=== PATIENT | male | born 1940 | race Two or more races ===

== ENCOUNTER 2024-02-06 11:07 | Inpatient (IN) | payer MEDICARE, BC ==
[~2024-02-06] VITALS: Ht 170.2 cm; Wt 70.5 kg
[2024-02-06 14:41] LABS: Basophils # (auto) 0 10 ^3/uL (0-0.2); Eosinophils # (auto) 0.1 10 ^3/uL (0-0.8); Monocytes # (auto) 0.2 10 ^3/uL (0-1.3); White Blood Cell 2.7 10^3/uL (4.4-10.8)
[2024-02-06 14:44] LABS: Eosinophils % (auto) 2.1 % (0.0-7.0); Hematocrit 23.4 % (41.0-53.0); Lymphocytes # (auto) 0.3 10 ^3/uL (0.4-5.4); Mean Corpuscular Hgb Conc. 29.7 g/dL (32.0-36.0); Mean Corpuscular Volume 67.3 fL (80.0-100.0); Monocytes % (auto) 8.9 % (0.0-12.0); Nucleated Red Blood Cells % 0.3 %; Platelet Count (auto) 211 10^3/uL (140-450); Red Blood Cells 3.48 10^6/uL (4.5-5.90)
[2024-02-06 14:56] LABS: Red Cell Distribution Width 23.7 % (11.8-14.3)
[2024-02-06 14:57] LABS: Hemoglobin 6.9 g/dL (13.5-17.5)
[2024-02-06 15:04] LABS: Alanine Aminotransferase 14 U/L (7-40); Albumin 3.5 g/dL (3.2-4.8); Alkaline Phosphatase 69 U/L (46-116); Anion Gap 5 (5-15); Aspartate Aminotransferase < 8 U/L (13-40); BUN/Creatinine Ratio 25.6 (10.0-20.0); Blood Urea Nitrogen 23 mg/dL (9-23); Calcium 9.2 mg/dL (8.7-10.4); Carbon Dioxide 27 mmol/L (20-30); Chloride 109 mmol/L (98-107); Glucose 106 mg/dL (74-106); Potassium 4.5 mmol/L (3.5-5.1); Sodium 141 mmol/L (136-145)
[2024-02-06 15:05] LABS: Bilirubin, Total 0.8 mg/dL (0.2-1.0); Total Protein 5.6 g/dL (5.7-8.2)
[2024-02-06] MEDS: diphenhdrAMINE HCL 25 MG CAP PO ONE (15:47)
[2024-02-06 16:13] LABS: Folate (Folic Acid) 11.23 ng/mL (>5.38)
[2024-02-06 16:18] LABS: % Iron Saturation 2.9 % (20-55)
[2024-02-06] MEDS ORDERED: MORPHINE SULFATE INJ 2 MG/ml SYRG IV PRN (23:45)
[2024-02-06] MEDS ORDERED: hydrALAZINE HCL 20 MG/ML VL IV PRN (23:45)
[2024-02-06] MEDS ORDERED: ONDANSETRON HCL 4 MG/2 ML VIAL IV PRN (23:45)
[2024-02-06] MEDS ORDERED: DEXTROSE (50%) 50ML SYRG IV PRN (23:45)
[2024-02-06] MEDS ORDERED: ACETAMINOPHEN 325 MG TAB PO PRN (23:45)
[2024-02-06] MEDS ORDERED: NITROGLYCERIN 0.4 MG SL TAB SL PRN (23:45)
[2024-02-06] MEDS: SOD CHL 0.45% 1,000 ML IV SCH (23:45)
[2024-02-06] MEDS ORDERED: DOCUSATE SOD 100 MG CAP PO PRN (23:45)
[2024-02-07] VITALS (11 sets, daily range): BP systolic 111–136; BP diastolic 52–68; PULSE 66–87; RESP 16–20; TEMP 97.6–98.9; O2SAT 95–100
[2024-02-07 05:41] LABS: Urine Bacteria None Seen /hpf (None Seen)
[2024-02-07] MEDS: ACCU-CHEK COMFORT CURVE STRIP VI SCH (05:48)
[2024-02-07] MEDS: InsuLIN REG 1unit/0.01ml Soln (100units/ml) SC SCH (05:48)
[2024-02-07 06:14] LABS: Urine Blood Negative /uL (Negative); Urine Clarity Clear (Clear); Urine Color Light-Yellow (Yellow); Urine Mucus FEW (None Seen); Urine Protein, UAD Negative (Negative); Urine Specific Gravity 1.012 (1.001-1.035); Urine Urobilinogen Normal (Negative); Urine WBC 1 /hpf (0 - 3); Urine WBC Clumps PRESENT /hpf (None Seen)
[2024-02-07] MEDS ORDERED: levETIRAcetam 1000 mg/100ml 100 ML IV SCH (10:00)
[2024-02-07 11:29] LABS: Hemoglobin 8.2 g/dL (13.5-17.5); Platelet Count (auto) 207 10^3/uL (140-450)
[2024-02-07 11:31] LABS: Hematocrit 27.3 % (41.0-53.0); Mean Corpuscular Hemoglobin 21.1 pg (28.0-32.0); Mean Corpuscular Hgb Conc. 30.1 g/dL (32.0-36.0); Mean Corpuscular Volume 70.1 fL (80.0-100.0); White Blood Cell 3.7 10^3/uL (4.4-10.8)
[2024-02-07 11:33] LABS: Red Cell Distribution Width 24.7 % (11.8-14.3)
[2024-02-07 11:34] LABS: Albumin 3.7 g/dL (3.2-4.8); Alkaline Phosphatase 70 U/L (46-116); Anion Gap 7 (5-15); Aspartate Aminotransferase 9 U/L (13-40); BUN/Creatinine Ratio 20.7 (10.0-20.0); Bilirubin, Total 1.6 mg/dL (0.2-1.0); Blood Urea Nitrogen 19 mg/dL (9-23); Calcium 9.3 mg/dL (8.7-10.4); Carbon Dioxide 24 mmol/L (20-30); Chloride 108 mmol/L (98-107); Glucose 116 mg/dL (74-106); Potassium 4.2 mmol/L (3.5-5.1); Sodium 139 mmol/L (136-145); Total Protein 6.2 g/dL (5.7-8.2)
[2024-02-07 11:35] LABS: Basophils % (manual) 0 (0.0-2.0); Blast Cells 0; Metamyelocytes % 0; Myelocytes % 0; Promyelocytes % 0
[2024-02-07 11:48] LABS: Alanine Aminotransferase < 9 U/L (7-40)
[2024-02-07] MEDS: FAMOTIDINE (10MG/ML) 2ML VL IV SCH (11:54)
[2024-02-07 12:29] LABS: Anisocytosis Moderate; Band Neutrophils % (manual) 1; Eosinophils % (manual) 3 (0-7); Lymphocytes % (manual) 11 (10.0-50.0); Monocytes % (manual) 6 (0-12); Reactive Lymphocytes 1
[2024-02-07 12:30] LABS: Hypochromia Slight; Ovalocytes FEW; Platelet Estimate Adequate
[2024-02-07] MEDS: levETIRAcetam 500 MG TAB PO ONE (15:08)
[2024-02-07] MEDS: levETIRAcetam 500 MG TAB PO SCH (21:38)
[2024-02-08] VITALS (9 sets, daily range): BP systolic 119–135; BP diastolic 60–69; PULSE 71–93; RESP 14–18; TEMP 97.8–99.6; O2SAT 95–98
[2024-02-08] MEDS: HYDROcodone-ACET 5/325MG TAB PO PRN (00:12)
[2024-02-08 07:44] LABS: Albumin 3.6 g/dL (3.2-4.8); Alkaline Phosphatase 67 U/L (46-116); Calcium 9.7 mg/dL (8.7-10.4)
[2024-02-08 07:45] LABS: Alanine Aminotransferase < 9 U/L (7-40); Anion Gap 6 (5-15); Aspartate Aminotransferase 8 U/L (13-40); BUN/Creatinine Ratio 16.1 (10.0-20.0); Bilirubin, Total 1.3 mg/dL (0.2-1.0); Blood Urea Nitrogen 15 mg/dL (9-23); Carbon Dioxide 24 mmol/L (20-30); Chloride 108 mmol/L (98-107); Glucose 96 mg/dL (74-106); Potassium 3.7 mmol/L (3.5-5.1); Sodium 138 mmol/L (136-145); Total Protein 6.1 g/dL (5.7-8.2)
[2024-02-08 07:50] LABS: Hemoglobin 7.9 g/dL (13.5-17.5); Mean Corpuscular Hemoglobin 21.1 pg (28.0-32.0); Red Blood Cells 3.77 10^6/uL (4.5-5.90); White Blood Cell 3.2 10^3/uL (4.4-10.8)
[2024-02-08 07:51] LABS: Hematocrit 26.1 % (41.0-53.0); Mean Corpuscular Hgb Conc. 30.4 g/dL (32.0-36.0); Mean Corpuscular Volume 69.2 fL (80.0-100.0); Platelet Count (auto) 203 10^3/uL (140-450); Red Cell Distribution Width 24.8 % (11.8-14.3)
[2024-02-08 07:55] LABS: Band Neutrophils % (manual) 0; Basophils % (manual) 0 (0.0-2.0); Blast Cells 0; Metamyelocytes % 0; Myelocytes % 0; Promyelocytes % 0; Reactive Lymphocytes 0
[2024-02-08 08:36] LABS: Eosinophils % (manual) 2 (0-7); Lymphocytes % (manual) 18 (10.0-50.0); Monocytes % (manual) 6 (0-12)
[2024-02-08 08:37] LABS: Anisocytosis Moderate; Hypochromia Slight; Ovalocytes FEW
[2024-02-08 08:38] LABS: Platelet Estimate Adequate
[2024-02-08] MEDS: IRON SUCROSE COMPLEX 100 ML IV SCH (11:32)
[2024-02-09] VITALS (10 sets, daily range): BP systolic 113–136; BP diastolic 50–73; PULSE 67–93; RESP 16–21; TEMP 97.2–98.5; O2SAT 92–100
[2024-02-09] MEDS ORDERED: SODIUM CHLORIDE LOCK 10 ML ONE (07:58)
[2024-02-09] MEDS: LIDOCAINE VISCOUS 2% 15ML UD ONE (09:18)
[2024-02-09] MEDS: fentaNYL CITRATE 100 MCG/2 ML VL ONE (09:20)
[2024-02-09] MEDS: diphenhdrAMINE HCL 50 MG/1 ML VL ONE (09:20)
[2024-02-09] MEDS: MIDAZOLAM HCL 5 MG/ML-1ML VIAL ONE (09:20)
[2024-02-09 13:51] LABS: Basophils # (auto) 0 10 ^3/uL (0-0.2); Lymphocytes # (auto) 0.2 10 ^3/uL (0.4-5.4); Mean Corpuscular Hemoglobin 21.3 pg (28.0-32.0); Monocytes # (auto) 0.2 10 ^3/uL (0-1.3); Neutrophils # (auto) 1.7 10 ^3/uL (1.6-8.6); Neutrophils % (auto) 78.3 % (37.0-80.0); Nucleated Red Blood Cells % 0.3 %; Red Cell Distribution Width 24.8 % (11.8-14.3); White Blood Cell 2.2 10^3/uL (4.4-10.8)
[2024-02-09 13:54] LABS: Basophils % (auto) 1.1 % (0.0-2.0); Eosinophils # (auto) 0 10 ^3/uL (0-0.8); Eosinophils % (auto) 1.9 % (0.0-7.0); Hematocrit 25.7 % (41.0-53.0); Hemoglobin 7.8 g/dL (13.5-17.5); Lymphocytes % (auto) 10.9 % (10.0-50.0); Mean Corpuscular Hgb Conc. 30.4 g/dL (32.0-36.0); Mean Corpuscular Volume 69.8 fL (80.0-100.0); Monocytes % (auto) 7.8 % (0.0-12.0); Platelet Count (auto) 192 10^3/uL (140-450); Red Blood Cells 3.69 10^6/uL (4.5-5.90)
[2024-02-09 14:58] LABS: Alanine Aminotransferase 11 U/L (7-40); Albumin 3.7 g/dL (3.2-4.8); Alkaline Phosphatase 68 U/L (46-116); Anion Gap 7 (5-15); Aspartate Aminotransferase < 8 U/L (13-40); BUN/Creatinine Ratio 13.3 (10.0-20.0); Bilirubin, Total 0.9 mg/dL (0.2-1.0); Blood Urea Nitrogen 12 mg/dL (9-23); Calcium 9.7 mg/dL (8.7-10.4); Carbon Dioxide 24 mmol/L (20-30); Chloride 110 mmol/L (98-107); Glucose 114 mg/dL (74-106); Potassium 3.8 mmol/L (3.5-5.1); Sodium 141 mmol/L (136-145); Total Protein 6.1 g/dL (5.7-8.2)
[2024-02-10] VITALS (8 sets, daily range): BP systolic 130–149; BP diastolic 59–71; PULSE 76–91; RESP 15–18; TEMP 97.5–98.4; O2SAT 94–99
[2024-02-10 11:31] LABS: Basophils # (auto) 0 10 ^3/uL (0-0.2); Eosinophils # (auto) 0.1 10 ^3/uL (0-0.8); Hematocrit 26.4 % (41.0-53.0); Hemoglobin 7.9 g/dL (13.5-17.5); Monocytes # (auto) 0.2 10 ^3/uL (0-1.3)
[2024-02-10 11:33] LABS: Basophils % (auto) 0.8 % (0.0-2.0); Eosinophils % (auto) 2.8 % (0.0-7.0); Lymphocytes # (auto) 0.3 10 ^3/uL (0.4-5.4); Lymphocytes % (auto) 9.7 % (10.0-50.0); Mean Corpuscular Hgb Conc. 29.9 g/dL (32.0-36.0); Mean Corpuscular Volume 70.2 fL (80.0-100.0); Monocytes % (auto) 6.9 % (0.0-12.0); Neutrophils # (auto) 2.4 10 ^3/uL (1.6-8.6); Neutrophils % (auto) 79.8 % (37.0-80.0); Nucleated Red Blood Cells % 0.1 %; Platelet Count (auto) 204 10^3/uL (140-450); Red Blood Cells 3.76 10^6/uL (4.5-5.90)
[2024-02-10 11:49] LABS: Alanine Aminotransferase 12 U/L (7-40); Alkaline Phosphatase 67 U/L (46-116); Anion Gap 7 (5-15); Calcium 9.6 mg/dL (8.7-10.4); Carbon Dioxide 23 mmol/L (20-30); Chloride 112 mmol/L (98-107); Sodium 142 mmol/L (136-145)
[2024-02-10 11:50] LABS: BUN/Creatinine Ratio 12.2 (10.0-20.0); Blood Urea Nitrogen 11 mg/dL (9-23); Glucose 95 mg/dL (74-106)
[2024-02-10 11:52] LABS: Albumin 3.6 g/dL (3.2-4.8); Aspartate Aminotransferase 8 U/L (13-40); Bilirubin, Total 0.9 mg/dL (0.2-1.0)
[2024-02-10 11:58] LABS: Platelet Estimate Adequate
[2024-02-10 11:59] LABS: Hypochromia Moderate
[2024-02-10 12:01] LABS: Anisocytosis Marked; Large Platelets FEW
[2024-02-10 14:45] LABS: COVID19 ANTIGEN SOFIA FIA NEGATIVE (NEGATIVE)
[2024-02-11 01:00] VITALS: BP 131/66; PULSE 82; RESP 18; TEMP 97.8; O2SAT 98
[2024-02-11 05:00] VITALS: BP 125/64; PULSE 78; RESP 18; TEMP 97.9; O2SAT 97
[2024-02-11 08:00] VITALS: PULSE 69
[2024-02-11 09:12] VITALS: BP 122/65; PULSE 85; RESP 17; TEMP 98.9; O2SAT 97
[2024-02-11 09:41] LABS: Basophils # (auto) 0 10 ^3/uL (0-0.2); Eosinophils # (auto) 0.1 10 ^3/uL (0-0.8); Hemoglobin 7.6 g/dL (13.5-17.5); Monocytes # (auto) 0.2 10 ^3/uL (0-1.3); White Blood Cell 2.9 10^3/uL (4.4-10.8)
[2024-02-11 09:44] LABS: Basophils % (auto) 0.5 % (0.0-2.0); Eosinophils % (auto) 3.1 % (0.0-7.0); Hematocrit 25.5 % (41.0-53.0); Lymphocytes # (auto) 0.3 10 ^3/uL (0.4-5.4); Lymphocytes % (auto) 10.2 % (10.0-50.0); Mean Corpuscular Hemoglobin 21.2 pg (28.0-32.0); Mean Corpuscular Hgb Conc. 29.8 g/dL (32.0-36.0); Mean Corpuscular Volume 71.1 fL (80.0-100.0); Monocytes % (auto) 8.5 % (0.0-12.0); Neutrophils # (auto) 2.3 10 ^3/uL (1.6-8.6); Neutrophils % (auto) 77.7 % (37.0-80.0); Platelet Count (auto) 201 10^3/uL (140-450); Red Blood Cells 3.58 10^6/uL (4.5-5.90)
[2024-02-11 09:56] LABS: Red Cell Distribution Width 24.9 % (11.8-14.3)
[2024-02-11 09:59] LABS: Alanine Aminotransferase 15 U/L (7-40); Albumin 3.7 g/dL (3.2-4.8); Alkaline Phosphatase 67 U/L (46-116); Anion Gap 6 (5-15); Aspartate Aminotransferase < 8 U/L (13-40); BUN/Creatinine Ratio 14.6 (10.0-20.0); Blood Urea Nitrogen 12 mg/dL (9-23); Calcium 9.4 mg/dL (8.7-10.4); Carbon Dioxide 25 mmol/L (20-30); Chloride 111 mmol/L (98-107); Glucose 133 mg/dL (74-106); Potassium 3.6 mmol/L (3.5-5.1); Sodium 142 mmol/L (136-145)
[2024-02-11 10:00] LABS: Bilirubin, Total 0.9 mg/dL (0.2-1.0); Total Protein 5.9 g/dL (5.7-8.2)
[2024-02-11 13:00] VITALS: BP 129/71; PULSE 70; RESP 16; TEMP 98.2; O2SAT 97
== END 2024-02-11 16:15 | disposition home health service (06) | DRG 64 ==
LOC: EDBD 11:07 → EDSEX 11:07 → ER 11:07 → TELE 23:48 → TELE-WESTW 23:48 → UNDODEPER 02-07 04:04
PROVIDERS: ADMIT Nurse Practitioner Family; ATTEND Internal Medicine
PROC: 30233N1 Transfusion of Nonautologous Red Blood Cells into Peripheral Vein, Percutaneous Approach (ICD-10-PCS; 2024-02-07)
PROC: 0DB68ZX Excision of Stomach, Via Natural or Artificial Opening Endoscopic, Diagnostic (ICD-10-PCS; 2024-02-09)
PROC: 0DB98ZX Excision of Duodenum, Via Natural or Artificial Opening Endoscopic, Diagnostic (ICD-10-PCS; principal; 2024-02-09 09:13)
DX: I62.02 Nontraumatic subacute subdural hemorrhage (principal); E43 Unspecified severe protein-calorie malnutrition; D62 Acute posthemorrhagic anemia; D32.0 Benign neoplasm of cerebral meninges; K29.80 Duodenitis without bleeding; D70.9 Neutropenia, unspecified; I48.0 Paroxysmal atrial fibrillation; K29.70 Gastritis, unspecified, without bleeding; J44.9 Chronic obstructive pulmonary disease, unspecified; E11.9 Type 2 diabetes mellitus without complications; I10 Essential (primary) hypertension; Z96.612 Presence of left artificial shoulder joint; Z96.651 Presence of right artificial knee joint; Z20.822 Contact with and (suspected) exposure to COVID-19; F17.210 Nicotine dependence, cigarettes, uncomplicated; E78.00 Pure hypercholesterolemia, unspecified; Z80.8 Family history of malignant neoplasm of other organs or systems; Z86.711 Personal history of pulmonary embolism; Z92.3 Personal history of irradiation; Z85.46 Personal history of malignant neoplasm of prostate; Z68.24 Body mass index [BMI] 24.0-24.9, adult
CPT/HCPCS: 36415; 43239; 70450; 71250; 74176; 80053; 81001; 82270; 82607; 82746; 82962; 83540; 83550; 83605; 83615; 84484; 85007; 85025; 85027; 86850; 86900; 86901; 86920; 87426; 93005; 93306; 97110; 97116; 97163; 97530; 99291; G0378; J1756; J1815; J2250; J3490

== ENCOUNTER 2024-02-23 19:41 | Inpatient (IN) | payer MEDICARE, BC ==
[~2024-02-23] VITALS: Ht 172.7 cm; Wt 71.8 kg
[2024-02-23 20:32] LABS: White Blood Cell 2.2 10^3/uL (4.4-10.8)
[2024-02-23 20:34] LABS: Hematocrit 29.6 % (41.0-53.0); Hemoglobin 9.1 g/dL (13.5-17.5); Mean Corpuscular Hemoglobin 21.7 pg (28.0-32.0); Mean Corpuscular Hgb Conc. 30.7 g/dL (32.0-36.0); Mean Corpuscular Volume 70.7 fL (80.0-100.0); Platelet Count (auto) 280 10^3/uL (140-450); Red Blood Cells 4.18 10^6/uL (4.5-5.90)
[2024-02-23 20:36] LABS: Red Cell Distribution Width 28.2 % (11.8-14.3)
[2024-02-23 20:48] LABS: Alanine Aminotransferase 11 U/L (7-40); Albumin 3.7 g/dL (3.2-4.8); Alkaline Phosphatase 82 U/L (46-116); Anion Gap 6 (5-15); Aspartate Aminotransferase 9 U/L (13-40); BUN/Creatinine Ratio 21.6 (10.0-20.0); Bilirubin, Total 1.2 mg/dL (0.2-1.0); Blood Urea Nitrogen 21 mg/dL (9-23); Calcium 9.2 mg/dL (8.7-10.4); Carbon Dioxide 24 mmol/L (20-30); Chloride 106 mmol/L (98-107); Glucose 152 mg/dL (74-106); Lipase 27 U/L (12-53); Potassium 4.4 mmol/L (3.5-5.1); Sodium 136 mmol/L (136-145)
[2024-02-23 20:49] LABS: Total Protein 6.2 g/dL (5.7-8.2)
[2024-02-23 20:54] LABS: Basophils % (manual) 0 (0.0-2.0); Blast Cells 0; Eosinophils % (manual) 0 (0-7); Metamyelocytes % 0; Myelocytes % 0; Promyelocytes % 0; Reactive Lymphocytes 0
[2024-02-23 21:13] LABS: Band Neutrophils % (manual) 13; Lymphocytes % (manual) 17 (10.0-50.0); Monocytes % (manual) 3 (0-12)
[2024-02-23 21:14] LABS: Anisocytosis Moderate; Hypochromia Moderate; Platelet Estimate Adequate
[2024-02-23 21:15] LABS: Ovalocytes FEW
[2024-02-23] MEDS: ACETAMINOPHEN 325 MG TAB PO ONE (23:14)
[2024-02-23 23:26] VITALS: PULSE 104
[2024-02-24] VITALS (7 sets, daily range): BP systolic 115–131; BP diastolic 56–59; PULSE 80–100; RESP 16–21; TEMP 98–98.8; O2SAT 93–98
[2024-02-24] MEDS ORDERED: ONDANSETRON HCL 4 MG/2 ML VIAL IV PRN (00:30)
[2024-02-24 00:45] LABS: INR 1.29 (0.9-1.15); Prothrombin Time 13.4 sec (9.3-11.8)
[2024-02-24] MEDS: cefTRIAXone 1GM/50ML D5W 50 ML IV ONE (01:18)
[2024-02-24] MEDS: traMADol HCL 50 MG TAB PO PRN (01:19)
[2024-02-24] MEDS: cefTRIAXone 1GM/50ML D5W 50 ML IV SCH (03:28)
[2024-02-24] MEDS: levETIRAcetam 500 MG TAB PO SCH (09:25)
[2024-02-24] MEDS: FUROSEMIDE 40 MG TAB PO SCH (09:26)
[2024-02-24] MEDS: METOPROLOL TARTRATE 25 MG TAB PO SCH (09:34)
[2024-02-24] MEDS: PANTOPRAZOLE 40 MG TAB PO ONE (14:39)
[2024-02-24] MEDS ORDERED: MET25T PO (14:57)
[2024-02-24] MEDS ORDERED: FER325T PO (14:57)
[2024-02-24] MEDS ORDERED: FURO40TA4 PO (14:57)
[2024-02-24] MEDS ORDERED: LEVE100020 PO (14:57)
[2024-02-24] MEDS ORDERED: WARF-112 PO (14:57)
[2024-02-24] MEDS ORDERED: METO25TA5 PO (15:16)
[2024-02-24] MEDS ORDERED: LEVE100012 PO (15:20)
[2024-02-24] MEDS: Ensure HIGH Protein Chocolate 8oz Bottle PO SCH (18:00)
[2024-02-24] MEDS: LACTULOSE 20Gm/30ML SOLN PO ONE (18:33)
[2024-02-24 19:35] LABS: Urine Bacteria FEW /hpf (None Seen); Urine Blood Negative /uL (Negative); Urine Clarity Turbid (Clear); Urine Color Yellow (Yellow); Urine Mucus FEW (None Seen); Urine Protein, UAD TRACE (Negative); Urine Specific Gravity 1.015 (1.001-1.035); Urine Urobilinogen Normal (Negative); Urine WBC 2 /hpf (0 - 3)
[2024-02-24 19:45] LABS: Amphetamine Screen, Urine Neg (NEGATIVE)
[2024-02-24 19:46] LABS: Barbiturate Scree,Urine Neg (NEGATIVE); Benzodiazephine Screen, Urine Neg (NEGATIVE); Cannabinoid Screen, Urine Neg (NEGATIVE); Cocaine Screen, Urine Neg (NEGATIVE); Opiate Scree,Urine Pos (NEGATIVE); Phencyclidine Screen, Urine Neg (NEGATIVE)
[2024-02-25] VITALS (8 sets, daily range): BP systolic 101–120; BP diastolic 55–65; PULSE 73–105; RESP 17–22; TEMP 97.8–98.5; O2SAT 94–98
[2024-02-25] MEDS: PANTOPRAZOLE 40 MG TAB PO SCH (05:54)
[2024-02-25 08:29] LABS: Basophils # (auto) 0 10 ^3/uL (0-0.2); Basophils % (auto) 0.1 % (0.0-2.0); Eosinophils # (auto) 0 10 ^3/uL (0-0.8); Hemoglobin 8.1 g/dL (13.5-17.5); Lymphocytes # (auto) 0.9 10 ^3/uL (0.4-5.4); Mean Corpuscular Volume 71.4 fL (80.0-100.0); Platelet Count (auto) 249 10^3/uL (140-450)
[2024-02-25 08:31] LABS: Hematocrit 26.7 % (41.0-53.0); Lymphocytes % (auto) 5.3 % (10.0-50.0); Mean Corpuscular Hemoglobin 21.7 pg (28.0-32.0); Mean Corpuscular Hgb Conc. 30.4 g/dL (32.0-36.0); Monocytes # (auto) 0.5 10 ^3/uL (0-1.3); Monocytes % (auto) 2.8 % (0.0-12.0); Neutrophils # (auto) 15.2 10 ^3/uL (1.6-8.6); Neutrophils % (auto) 91.8 % (37.0-80.0); Red Blood Cells 3.74 10^6/uL (4.5-5.90); Red Cell Distribution Width 27.4 % (11.8-14.3); White Blood Cell 16.5 10^3/uL (4.4-10.8)
[2024-02-25 08:42] LABS: Albumin 3.5 g/dL (3.2-4.8); Alkaline Phosphatase 86 U/L (46-116); Anion Gap 8 (5-15); Aspartate Aminotransferase 8 U/L (13-40); Calcium 9.6 mg/dL (8.7-10.4); Carbon Dioxide 26 mmol/L (20-30); Chloride 101 mmol/L (98-107); Glucose 126 mg/dL (74-106); Potassium 4.5 mmol/L (3.5-5.1); Sodium 135 mmol/L (136-145)
[2024-02-25 08:43] LABS: Alanine Aminotransferase < 9 U/L (7-40); Bilirubin, Total 0.9 mg/dL (0.2-1.0); Blood Urea Nitrogen 38 mg/dL (9-23)
[2024-02-25 08:49] LABS: BUN/Creatinine Ratio 24.1 (10.0-20.0)
[2024-02-25] MEDS: LACTULOSE 20Gm/30ML SOLN PO SCH (09:28)
[2024-02-25 10:57] LABS: Platelet Estimate Adequate
[2024-02-25 10:58] LABS: Anisocytosis Moderate; Hypochromia Moderate; Ovalocytes MODERATE
[2024-02-26] VITALS (8 sets, daily range): BP systolic 108–127; BP diastolic 60–69; PULSE 78–99; RESP 17–22; TEMP 97.5–98.4; O2SAT 91–97
[2024-02-26 06:33] LABS: Basophils # (auto) 0 10 ^3/uL (0-0.2); Basophils % (auto) 0.1 % (0.0-2.0); Eosinophils # (auto) 0 10 ^3/uL (0-0.8); Eosinophils % (auto) 0.1 % (0.0-7.0); Hemoglobin 7.3 g/dL (13.5-17.5); Lymphocytes # (auto) 0.2 10 ^3/uL (0.4-5.4); Mean Corpuscular Hemoglobin 21.7 pg (28.0-32.0)
[2024-02-26 06:36] LABS: Anion Gap 6 (5-15); Carbon Dioxide 27 mmol/L (20-30); Chloride 103 mmol/L (98-107); Potassium 4.4 mmol/L (3.5-5.1); Sodium 136 mmol/L (136-145)
[2024-02-26 06:38] LABS: Calcium 9.6 mg/dL (8.7-10.4)
[2024-02-26 06:39] LABS: Hematocrit 23.9 % (41.0-53.0); Lymphocytes % (auto) 1.6 % (10.0-50.0); Mean Corpuscular Hgb Conc. 30.4 g/dL (32.0-36.0); Mean Corpuscular Volume 71.4 fL (80.0-100.0); Monocytes # (auto) 0.4 10 ^3/uL (0-1.3); Monocytes % (auto) 3.5 % (0.0-12.0); Neutrophils # (auto) 9.5 10 ^3/uL (1.6-8.6); Neutrophils % (auto) 94.7 % (37.0-80.0); Platelet Count (auto) 192 10^3/uL (140-450); Red Blood Cells 3.35 10^6/uL (4.5-5.90); White Blood Cell 10.1 10^3/uL (4.4-10.8)
[2024-02-26 06:42] LABS: BUN/Creatinine Ratio 25.2 (10.0-20.0); Blood Urea Nitrogen 37 mg/dL (9-23); Glucose 108 mg/dL (74-106); Red Cell Distribution Width 27.2 % (11.8-14.3)
[2024-02-26 08:06] LABS: PSA Free 0.03 ng/mL; Prostate Specific Antigen 0.2 ng/mL (0.0-4.0)
[2024-02-26 08:21] LABS: Platelet Estimate Adequate
[2024-02-26 08:22] LABS: Anisocytosis Moderate; Hypochromia Moderate
[2024-02-26 08:23] LABS: Ovalocytes FEW
[2024-02-26 09:11] LABS: Hepatitis B Core Total AB Negative (Negative)
[2024-02-26 10:19] LABS: Hepatitis A Total Antibody Negative (Negative); Hepatitis B Surface Antibody Negative (Negative); Hepatitis B Surface Antigen Negative (Negative); Hepatitis C Antibody Negative (Negative)
[2024-02-26] MEDS: LACTULOSE 20Gm/30ML SOLN PO ONE (10:30)
[2024-02-26 11:08] LABS: % Iron Saturation 5.7 % (20-55)
[2024-02-26] MEDS: IRON SUCROSE COMPLEX 100 ML IV SCH (12:06)
[2024-02-26] MEDS: LACTULOSE 20Gm/30ML SOLN PO SCH (21:40)
[2024-02-27] VITALS (8 sets, daily range): BP systolic 110–124; BP diastolic 58–67; PULSE 92–125; RESP 16–21; TEMP 97.4–98.7; O2SAT 88–96
[2024-02-27 08:12] LABS: Basophils # (auto) 0 10 ^3/uL (0-0.2); Eosinophils # (auto) 0 10 ^3/uL (0-0.8); Eosinophils % (auto) 0.5 % (0.0-7.0); Hematocrit 27.2 % (41.0-53.0); Hemoglobin 8.2 g/dL (13.5-17.5); Lymphocytes # (auto) 0.2 10 ^3/uL (0.4-5.4); Lymphocytes % (auto) 2.2 % (10.0-50.0); Mean Corpuscular Hemoglobin 21.6 pg (28.0-32.0); Mean Corpuscular Hgb Conc. 30.2 g/dL (32.0-36.0); Mean Corpuscular Volume 71.6 fL (80.0-100.0); Monocytes # (auto) 0.4 10 ^3/uL (0-1.3); Monocytes % (auto) 4.3 % (0.0-12.0); Neutrophils # (auto) 8.2 10 ^3/uL (1.6-8.6); Nucleated Red Blood Cells % 0.1 %; Platelet Count (auto) 225 10^3/uL (140-450); Red Cell Distribution Width 27.2 % (11.8-14.3); White Blood Cell 8.8 10^3/uL (4.4-10.8)
[2024-02-27 08:16] LABS: Chloride 103 mmol/L (98-107); Potassium 3.9 mmol/L (3.5-5.1); Sodium 137 mmol/L (136-145)
[2024-02-27 08:17] LABS: Anion Gap 7 (5-15); Calcium 9.8 mg/dL (8.7-10.4); Carbon Dioxide 27 mmol/L (20-31)
[2024-02-27 08:22] LABS: BUN/Creatinine Ratio 25.5 (10.0-20.0); Blood Urea Nitrogen 35 mg/dL (9-23)
[2024-02-27 08:28] LABS: Glucose 100 mg/dL (74-106)
[2024-02-27] MEDS: LORazepam 2MG/ML-1ML VIAL IV ONE (11:52)
[2024-02-28] VITALS (8 sets, daily range): BP systolic 105–127; BP diastolic 59–73; PULSE 95–99; RESP 18–20; TEMP 97.7–98.7; O2SAT 90–99
[2024-02-29 01:00] VITALS: BP 113/71; PULSE 97; RESP 16; TEMP 97.5; O2SAT 98
[2024-02-29 05:00] VITALS: BP 117/67; PULSE 96; RESP 20; TEMP 97.4; O2SAT 92
[2024-02-29 08:00] VITALS: PULSE 82; O2SAT 97
[2024-02-29 08:26] VITALS: BP 119/71; PULSE 86; RESP 19; TEMP 97.5; O2SAT 98
[2024-02-29 11:48] VITALS: BP 113/60; PULSE 98; RESP 19; TEMP 97.5; O2SAT 100
[2024-02-29 15:17] VITALS: BP 132/68; PULSE 69; RESP 18; TEMP 98.3; O2SAT 96
== END 2024-02-29 16:45 | DRG 432 ==
LOC: EDBD 19:41 → ER 19:41 → OVERFLOW 02-24 00:25 → WEST WING 02-24 14:41
PROVIDERS: ADMIT Nurse Practitioner; ATTEND Family Medicine
DX: K74.60 Unspecified cirrhosis of liver (principal); J96.20 Acute and chronic respiratory failure, unspecified whether with hypoxia or hypercapnia; D61.818 Other pancytopenia; Q61.2 Polycystic kidney, adult type; K76.6 Portal hypertension; R18.8 Other ascites; N17.9 Acute kidney failure, unspecified; R16.1 Splenomegaly, not elsewhere classified; E11.9 Type 2 diabetes mellitus without complications; E78.5 Hyperlipidemia, unspecified; I11.9 Hypertensive heart disease without heart failure; J44.9 Chronic obstructive pulmonary disease, unspecified; K59.00 Constipation, unspecified; C61 Malignant neoplasm of prostate; D32.0 Benign neoplasm of cerebral meninges; E87.70 Fluid overload, unspecified; K80.20 Calculus of gallbladder without cholecystitis without obstruction; K29.70 Gastritis, unspecified, without bleeding; K29.80 Duodenitis without bleeding; K25.9 Gastric ulcer, unspecified as acute or chronic, without hemorrhage or perforation; F19.10 Other psychoactive substance abuse, uncomplicated; R62.7 Adult failure to thrive; I72.8 Aneurysm of other specified arteries; Z87.11 Personal history of peptic ulcer disease; Z87.891 Personal history of nicotine dependence; Z68.24 Body mass index [BMI] 24.0-24.9, adult
CPT/HCPCS: 36415; 74176; 74181; 76705; 80048; 80053; 80307; 81001; 82140; 82728; 83036; 83540; 83550; 83605; 83690; 84154; 84702; 85007; 85025; 85027; 85610; 85730; 86704; 86706; 86708; 86803; 87040; 87081; 87340; 93005; 97110; 97116; 97163; 97530; 99291; G0378; J1756